=== PATIENT | female | born 1980 | race Two or more races ===

== ENCOUNTER 2019-04-20 21:13 | Emergency (ER) | payer MEDICAID ==
[~2019-04-20] VITALS: Ht 167.6 cm; Wt 98.2 kg
[2019-04-20] MEDS ORDERED: SODIUM CHLORIDE 0.9% 1,000ML IVBOLUS ONE (21:30)
[2019-04-20] MEDS ORDERED: PHENAZOPYRIDINE 200 MG TABLET PO ONE (21:30)
[2019-04-20] MEDS ORDERED: SODIUM CHLORIDE FLUSH 10ML SYR IVF ONE (21:30)
[2019-04-20 21:46] LABS: BASOPHILS # (AUTO) 0.03 x10^3/uL (0-0.1); BASOPHILS % (AUTO) 0 % (0-1); EOSINOPHILS # (AUTO) 0.18 x10^3/uL (0-0.4); EOSINOPHILS % (AUTO) 2 % (1-7); LYMPHOCYTES % (AUTO) 20 % (22-44); MD NO; MEAN CORPUSCULAR HEMOGLOBIN 26.2 pg (27.0-34.8); MEAN CORPUSCULAR HGB CONC 32.3 g/dL (32.4-35.8); MEAN CORPUSCULAR VOLUME 81.2 fL (80-100); MEAN PLATELET VOLUME 7.9 fL (7.4-10.4); MONOCYTES # (AUTO) 0.67 x10^3/uL (0.2-0.8); MONOCYTES % (AUTO) 8 % (2-9); NEUTROPHILS # (AUTO) 5.64 x10^3/uL (1.8-6.8); NEUTROPHILS % (AUTO) 70 % (42-75); PLATELET COUNT 329 x10^3/uL (130-400); RED BLOOD COUNT 4.64 x10^6/uL (3.82-5.3); RED CELL DISTRIBUTION WIDTH 15.8 % (9.6-15.2)
[2019-04-20] MEDS ORDERED: PHENAZOPYRIDINE 200 MG TABLET ONE (21:52)
[2019-04-20 21:56] LABS: MICROSCOPIC AUTO
[2019-04-20 21:58] LABS: ANION GAP 4 mmol/L (5-15); CALCIUM 8.6 mg/dL (8.5-10.1); CHLORIDE 107 mmol/L (98-107); CULTURE INDICATED? YES
[2019-04-20 21:59] LABS: ALANINE AMINOTRANSFERASE 20 U/L (12-78); ALBUMIN 3.5 g/dL (3.4-5.0)
[2019-04-20 22:03] LABS: ALKALINE PHOSPHATASE 131 U/L (45-117); BILIRUBIN,TOTAL 0.2 mg/dL (0.2-1.0); TOTAL PROTEIN 8.4 g/dL (6.4-8.2)
[2019-04-20 22:27] LABS: CLUE CELLS NONE SEEN (NONE SEEN); WET PREP WBCS NONE SEEN (FEW)
[2019-04-20] MEDS ORDERED: CEFDINIR 300 MG CAPSULE ONE (22:58)
[2019-04-20] MEDS ORDERED: LORazepam 1MG TABLET ONE (22:59)
[2019-04-20] MEDS ORDERED: LORazepam 1MG TABLET PO ONE (23:00)
[2019-04-20] MEDS ORDERED: CEFDINIR 300 MG CAPSULE PO ONE (23:00)
[2019-04-20] MEDS ORDERED: ONDANSETRON ODT 4 MG ONE (23:05)
[2019-04-20 23:21] VITALS: BP 126/75
[2019-04-20] MEDS ORDERED: ONDANSETRON ODT 4 MG PO ONE (23:30)
== END 2019-04-20 23:23 | disposition home or self-care (01) ==
LOC: ED 21:54
DX: N30.01 Acute cystitis with hematuria (principal)
CPT/HCPCS: 36415; 80053; 81001; 84703; 85025; 87077; 87086; 87147; 87210; 87491; 87591; 87808; 99284; J7030; Q0162